=== PATIENT | male | born 1960 | race Caucasian/White ===

== ENCOUNTER 2021-07-20 06:49 | Day surgery (SDC) | payer MEDICAID ==
[~2021-07-20] VITALS: Ht 185.4 cm; Wt 104.3 kg
[2021-07-20] VITALS (8 sets, daily range): BP systolic 77–100; BP diastolic 41–64
[~2021-07-20 06:49] MED LIST: ASPI1TAB20 PO; ATEN100T PO; ATOR40TA52 PO; CYA100I PO; ENAL2.5T7 PO; GABA-339 PO; MULT1TAB95 PO; PANT1INJ3 PO
[2021-07-20] MEDS ORDERED: IODIXANOL 320MG/ML 100ML BTL IV ONE (08:51)
[2021-07-20] MEDS ORDERED: LIDOCAINE 2%HCL (LOCAL ANESTH.) INJ 10ml MDV ONE ×2 (08:51→08:55)
[2021-07-20] MEDS ORDERED: ANGIOMAX 250 MG VIAL IV ONE (08:57)
[2021-07-20] MEDS ORDERED: VERAPAMIL 2.5MG/ML INJ 2ML VIAL IV ONE (08:57)
[2021-07-20] MEDS ORDERED: HEPARIN SODIUM (PORCINE) 5000 UNITS/ML 1ML VIAL ONE (08:57)
[2021-07-20] MEDS ORDERED: SODIUM CHL 0.9% 0 ML ONE (08:58)
[2021-07-20] MEDS ORDERED: MIDAZOLAM HCL 2MG/2ML 2ml VIAL (1mg/ml) ONE (08:58)
[2021-07-20] MEDS ORDERED: fentaNYL CITRATE 100 MCG/2 ML VL ONE (08:58)
== END 2021-07-20 12:14 | disposition home or self-care (01) ==
LOC: CATH 06:49
PROVIDERS: ATTEND Internal Medicine
DX: R94.39 Abnormal result of other cardiovascular function study (principal); I25.118 Atherosclerotic heart disease of native coronary artery with other forms of angina pectoris; I10 Essential (primary) hypertension; E78.5 Hyperlipidemia, unspecified; I25.2 Old myocardial infarction; Z95.5 Presence of coronary angioplasty implant and graft; Z87.891 Personal history of nicotine dependence; Z79.82 Long term (current) use of aspirin; Z20.822 Contact with and (suspected) exposure to COVID-19
CPT/HCPCS: 93458; C1769; C1887; C1894; J1644; J2001; J2250; J3010; Q9967; U0003; 99152; 99153